=== PATIENT | male | born 1940 | race Caucasian/White ===

== ENCOUNTER 2022-07-24 09:04 | Inpatient (IN) ==
[2022-07-24] MEDS ORDERED: *HR* Dextrose 50 % in Water (Syg) 50 ML SYRINGE IVP PRN (20:44)
[2022-07-24] MEDS ORDERED: D5% in Water 1,000 ML IVC PRN (20:44)
[2022-07-24] MEDS ORDERED: Dextrose Gel 15 GM/37.5 ML TUBE PO PRN ×2 (20:44)
[2022-07-24] MEDS: Insulin LISPRO 300 UNITS/3 ML VIAL SUBQ SCH (22:44)
[2022-07-24] MEDS: QUEtiapine Fumarate 25 MG TABLET PO SCH (22:44)
[2022-07-24] MEDS: *HR* Metformin 500 MG TABLET PO SCH (22:44)
[2022-07-25 03:28] LABS: Bilirubin,Urine Negative (Negative); Blood,Urine Negative (Negative); Clarity,Urine Clear (Clear); Color,Urine Yellow (Yellow); Glucose,Urine (UA) 500 mg/dL (Normal); Ketones,Urine Negative (Negative); Leukocyte Esterase,Urine Negative (Negative); Nitrite,Urine Negative (Negative); PH,Urine 5.5 pH Units (5.0-8.0); Protein,Urine Negative (Neg-Trace); Urobilinogen,Urine Normal (Normal)
[2022-07-25 03:37] LABS: WBC,Urine 0-3 per hpf (0-3)
[2022-07-25 05:33] LABS: Hematocrit 35.9 % (37.5-50.1); Hemoglobin 11.8 g/dL (12.9-16.9); Mean Corpuscular HGB Conc 32.9 g/dL (31.6-35.5); Mean Corpuscular Hemoglobin 30.4 pg (28.0-33.3); Mean Corpuscular Volume 92.5 fL (83.0-100.0); Mean Platelet Volume 9.5 fL (9.4-12.4); Platelet Count 175 K/mcL (140-400); Red Blood Count 3.88 M/mcL (4.19-5.50); Red Cell Distribution Width 15.1 % (11.5-14.5); White Blood Count 4.7 K/mcL (4.3-11.1)
[2022-07-25 05:54] LABS: Albumin 3.5 g/dL (3.5-5.7); Albumin/Globulin Ratio 1.4 (1.1-2.2); Bilirubin,Total 0.5 mg/dL (0.3-1.0); Calcium 8.5 mg/dL (8.6-10.3); Globulin 2.5 g/dL (2.4-3.5); Magnesium 1.6 mg/dL (1.6-2.6); Potassium 3.6 mEq/L (3.5-5.1)
[2022-07-25] MEDS ORDERED: *HR* Enoxaparin 40 MG/0.4 ML SYRINGE SQ SCH (06:00)
[2022-07-25] MEDS: Insulin LISPRO 300 UNITS/3 ML VIAL SUBQ SCH ×4 (08:33→22:08)
[2022-07-25] MEDS: Aspirin Enteric Coated 81 MG Tablet PO SCH (08:35)
[2022-07-25 08:36] LABS: INR 1.2; Prothrombin Time 13.1 Seconds (9.4-12.1)
[2022-07-25 08:38] LABS: Activated Partial Thrombo Time 40.6 Seconds (26.0-36.0)
[2022-07-25] MEDS: Cholecalciferol (D-3) 1,000 UNIT (25MCG) TABLET PO SCH (10:23)
[2022-07-25] MEDS: *HR* Pioglitazone 15 MG TABLET PO SCH (10:23)
[2022-07-25] MEDS: *HR* GlyBURIDE 5 MG TABLET PO SCH (10:24)
[2022-07-25] MEDS: Finasteride 5 MG TABLET PO SCH (10:24)
[2022-07-25] MEDS: Metoprolol XL (24 HR) Succ 50 MG TAB.ER.24H PO SCH (10:24)
[2022-07-25] MEDS: *HR* SitaGLIPtin 25 MG TABLET PO SCH (10:24)
[2022-07-25] MEDS: Gabapentin 300 MG CAPSULE PO SCH (10:25)
[2022-07-25] MEDS: *HR* Metformin 500 MG TABLET PO SCH ×2 (10:25→22:07)
[2022-07-25] MEDS: (Mirabegron [Myrbetriq] 50 MG Tab.Er.24h) PO SCH (10:35)
[2022-07-25] MEDS: KRILL OIL 500 MG PO SCH (10:35)
[2022-07-25] MEDS: (Preservision Areds 2) PO SCH (10:35)
[2022-07-25] MEDS: (Cinnamon Bark [Cinnamon] 500 MG Capsule) PO SCH (11:14)
[2022-07-25] MEDS ORDERED: Saline Nasal Spray 44 ML BOTTLE NS PRN (19:02)
[2022-07-25] MEDS: QUEtiapine Fumarate 25 MG TABLET PO SCH (22:07)
[2022-07-26] MEDS: Insulin LISPRO 300 UNITS/3 ML VIAL SUBQ SCH ×4 (08:24→20:33)
[2022-07-26] MEDS: *HR* GlyBURIDE 5 MG TABLET PO SCH (08:25)
[2022-07-26] MEDS: *HR* Pioglitazone 15 MG TABLET PO SCH (08:25)
[2022-07-26] MEDS: Gabapentin 300 MG CAPSULE PO SCH (08:26)
[2022-07-26] MEDS: *HR* SitaGLIPtin 25 MG TABLET PO SCH (08:26)
[2022-07-26] MEDS: *HR* Metformin 500 MG TABLET PO SCH ×2 (08:26→21:04)
[2022-07-26] MEDS: Cholecalciferol (D-3) 1,000 UNIT (25MCG) TABLET PO SCH (08:26)
[2022-07-26] MEDS: Metoprolol XL (24 HR) Succ 50 MG TAB.ER.24H PO SCH (08:26)
[2022-07-26] MEDS: Aspirin Enteric Coated 81 MG Tablet PO SCH (08:26)
[2022-07-26] MEDS: Finasteride 5 MG TABLET PO SCH (08:26)
[2022-07-26] MEDS: KRILL OIL 500 MG PO SCH (08:27)
[2022-07-26] MEDS: (Mirabegron [Myrbetriq] 50 MG Tab.Er.24h) PO SCH (08:27)
[2022-07-26] MEDS: (Preservision Areds 2) PO SCH (08:27)
[2022-07-26] MEDS: (Cinnamon Bark [Cinnamon] 500 MG Capsule) PO SCH (15:19)
[2022-07-26] MEDS: polyethylene glycoL 3350 17 GM POWD.PACK PO SCH (15:55)
[2022-07-26] MEDS: QUEtiapine Fumarate 25 MG TABLET PO SCH (21:05)
[2022-07-26] MEDS: Gabapentin 100 MG CAPSULE PO SCH (21:06)
[2022-07-27 04:35] LABS: Hematocrit 33.1 % (37.5-50.1); Hemoglobin 11.1 g/dL (12.9-16.9); Mean Corpuscular HGB Conc 33.5 g/dL (31.6-35.5); Mean Corpuscular Hemoglobin 30.7 pg (28.0-33.3); Mean Corpuscular Volume 91.4 fL (83.0-100.0); Mean Platelet Volume 9.9 fL (9.4-12.4); Platelet Count 162 K/mcL (140-400); Red Blood Count 3.62 M/mcL (4.19-5.50); Red Cell Distribution Width 15.2 % (11.5-14.5); White Blood Count 6.2 K/mcL (4.3-11.1)
[2022-07-27 04:51] LABS: Albumin 3.3 g/dL (3.5-5.7); Albumin/Globulin Ratio 1.4 (1.1-2.2); Bilirubin,Total 0.4 mg/dL (0.3-1.0); Calcium 8.6 mg/dL (8.6-10.3); Globulin 2.3 g/dL (2.4-3.5); Magnesium 1.5 mg/dL (1.6-2.6); Potassium 3.7 mEq/L (3.5-5.1); Total Protein 5.6 g/dL (6.4-8.9)
[2022-07-27] MEDS: Insulin LISPRO 300 UNITS/3 ML VIAL SUBQ SCH ×4 (08:50→22:15)
[2022-07-27] MEDS: Aspirin Enteric Coated 81 MG Tablet PO SCH (08:51)
[2022-07-27] MEDS: Sennosides/Docusate Sodium TABLET PO PRN ×2 (08:51→22:11)
[2022-07-27] MEDS: Metoprolol XL (24 HR) Succ 50 MG TAB.ER.24H PO SCH (08:52)
[2022-07-27] MEDS: *HR* SitaGLIPtin 25 MG TABLET PO SCH (08:52)
[2022-07-27] MEDS: *HR* Metformin 500 MG TABLET PO SCH ×2 (08:52→22:12)
[2022-07-27] MEDS: *HR* Pioglitazone 15 MG TABLET PO SCH (08:52)
[2022-07-27] MEDS: Cholecalciferol (D-3) 1,000 UNIT (25MCG) TABLET PO SCH (08:53)
[2022-07-27] MEDS: Gabapentin 100 MG CAPSULE PO SCH ×3 (08:53→22:12)
[2022-07-27] MEDS: *HR* GlyBURIDE 5 MG TABLET PO SCH (08:53)
[2022-07-27] MEDS: Finasteride 5 MG TABLET PO SCH (08:53)
[2022-07-27] MEDS: polyethylene glycoL 3350 17 GM POWD.PACK PO SCH (08:54)
[2022-07-27] MEDS: KRILL OIL 500 MG PO SCH (09:12)
[2022-07-27] MEDS: (Preservision Areds 2) PO SCH (09:12)
[2022-07-27] MEDS: (Mirabegron [Myrbetriq] 50 MG Tab.Er.24h) PO SCH (09:12)
[2022-07-27] MEDS: Magnesium Oxide 400 MG TABLET PO SCH ×2 (12:17→22:12)
[2022-07-27] MEDS: (Cinnamon Bark [Cinnamon] 500 MG Capsule) PO SCH (15:25)
[2022-07-27] MEDS: QUEtiapine Fumarate 25 MG TABLET PO SCH (22:13)
[2022-07-28 05:20] LABS: Calcium 8.6 mg/dL (8.6-10.3); Magnesium 1.6 mg/dL (1.6-2.6); Potassium 4.2 mEq/L (3.5-5.1)
[2022-07-28] MEDS: Insulin LISPRO 300 UNITS/3 ML VIAL SUBQ SCH ×4 (08:23→22:42)
[2022-07-28] MEDS: Cholecalciferol (D-3) 1,000 UNIT (25MCG) TABLET PO SCH (08:24)
[2022-07-28] MEDS: *HR* GlyBURIDE 5 MG TABLET PO SCH (08:24)
[2022-07-28] MEDS: *HR* SitaGLIPtin 25 MG TABLET PO SCH (08:24)
[2022-07-28] MEDS: Metoprolol XL (24 HR) Succ 50 MG TAB.ER.24H PO SCH (08:24)
[2022-07-28] MEDS: Gabapentin 100 MG CAPSULE PO SCH ×3 (08:24→19:58)
[2022-07-28] MEDS: *HR* Pioglitazone 15 MG TABLET PO SCH (08:24)
[2022-07-28] MEDS: Finasteride 5 MG TABLET PO SCH (08:24)
[2022-07-28] MEDS: *HR* Metformin 500 MG TABLET PO SCH ×2 (08:24→19:58)
[2022-07-28] MEDS: Magnesium Oxide 400 MG TABLET PO SCH ×2 (08:25→19:58)
[2022-07-28] MEDS: KRILL OIL 500 MG PO SCH (08:25)
[2022-07-28] MEDS: polyethylene glycoL 3350 17 GM POWD.PACK PO SCH (08:25)
[2022-07-28] MEDS: (Mirabegron [Myrbetriq] 50 MG Tab.Er.24h) PO SCH (08:25)
[2022-07-28] MEDS: Aspirin Enteric Coated 81 MG Tablet PO SCH (08:25)
[2022-07-28] MEDS: Sennosides/Docusate Sodium TABLET PO PRN (08:25)
[2022-07-28] MEDS: (Preservision Areds 2) PO SCH (08:25)
[2022-07-28] MEDS: (Cinnamon Bark [Cinnamon] 500 MG Capsule) PO SCH (15:39)
[2022-07-28] MEDS: QUEtiapine Fumarate 25 MG TABLET PO SCH (19:59)
[2022-07-29] MEDS: *HR* Pioglitazone 15 MG TABLET PO SCH (07:23)
[2022-07-29] MEDS: *HR* GlyBURIDE 5 MG TABLET PO SCH (07:24)
[2022-07-29] MEDS: Cholecalciferol (D-3) 1,000 UNIT (25MCG) TABLET PO SCH (07:24)
[2022-07-29] MEDS: Gabapentin 100 MG CAPSULE PO SCH ×3 (07:24→19:50)
[2022-07-29] MEDS: Metoprolol XL (24 HR) Succ 50 MG TAB.ER.24H PO SCH (07:24)
[2022-07-29] MEDS: Insulin LISPRO 300 UNITS/3 ML VIAL SUBQ SCH ×4 (07:24→19:42)
[2022-07-29] MEDS: Aspirin Enteric Coated 81 MG Tablet PO SCH (07:24)
[2022-07-29] MEDS: Finasteride 5 MG TABLET PO SCH (07:24)
[2022-07-29] MEDS: *HR* Metformin 500 MG TABLET PO SCH ×2 (07:25→19:50)
[2022-07-29] MEDS: Magnesium Oxide 400 MG TABLET PO SCH ×2 (07:25→19:51)
[2022-07-29] MEDS: (Mirabegron [Myrbetriq] 50 MG Tab.Er.24h) PO SCH (07:25)
[2022-07-29] MEDS: (Preservision Areds 2) PO SCH (07:25)
[2022-07-29] MEDS: KRILL OIL 500 MG PO SCH (07:25)
[2022-07-29] MEDS: *HR* SitaGLIPtin 25 MG TABLET PO SCH (07:25)
[2022-07-29] MEDS: polyethylene glycoL 3350 17 GM POWD.PACK PO SCH (07:25)
[2022-07-29] MEDS: (Cinnamon Bark [Cinnamon] 500 MG Capsule) PO SCH (14:38)
[2022-07-29] MEDS: QUEtiapine Fumarate 25 MG TABLET PO SCH (19:50)
[2022-07-30 05:09] LABS: Hematocrit 34.7 % (37.5-50.1); Hemoglobin 11.5 g/dL (12.9-16.9); Mean Corpuscular HGB Conc 33.1 g/dL (31.6-35.5); Mean Corpuscular Hemoglobin 30.7 pg (28.0-33.3); Mean Corpuscular Volume 92.8 fL (83.0-100.0); Mean Platelet Volume 9.5 fL (9.4-12.4); Platelet Count 196 K/mcL (140-400); Red Blood Count 3.74 M/mcL (4.19-5.50); White Blood Count 5.6 K/mcL (4.3-11.1)
[2022-07-30 05:22] LABS: Calcium 8.7 mg/dL (8.6-10.3); Magnesium 1.8 mg/dL (1.6-2.6); Potassium 3.9 mEq/L (3.5-5.1)
[2022-07-30] MEDS: Insulin LISPRO 300 UNITS/3 ML VIAL SUBQ SCH ×4 (07:23→19:51)
[2022-07-30] MEDS: *HR* Metformin 500 MG TABLET PO SCH ×2 (08:14→19:51)
[2022-07-30] MEDS: *HR* Pioglitazone 15 MG TABLET PO SCH (08:14)
[2022-07-30] MEDS: *HR* SitaGLIPtin 25 MG TABLET PO SCH (08:14)
[2022-07-30] MEDS: *HR* GlyBURIDE 5 MG TABLET PO SCH (08:14)
[2022-07-30] MEDS: Finasteride 5 MG TABLET PO SCH (08:14)
[2022-07-30] MEDS: Cholecalciferol (D-3) 1,000 UNIT (25MCG) TABLET PO SCH (08:15)
[2022-07-30] MEDS: polyethylene glycoL 3350 17 GM POWD.PACK PO SCH (08:15)
[2022-07-30] MEDS: Aspirin Enteric Coated 81 MG Tablet PO SCH (08:15)
[2022-07-30] MEDS: Magnesium Oxide 400 MG TABLET PO SCH ×2 (08:15→19:50)
[2022-07-30] MEDS: (Mirabegron [Myrbetriq] 50 MG Tab.Er.24h) PO SCH (08:15)
[2022-07-30] MEDS: KRILL OIL 500 MG PO SCH (08:15)
[2022-07-30] MEDS: (Preservision Areds 2) PO SCH (08:15)
[2022-07-30] MEDS: Metoprolol XL (24 HR) Succ 50 MG TAB.ER.24H PO SCH (08:15)
[2022-07-30] MEDS: Gabapentin 100 MG CAPSULE PO SCH ×3 (08:15→19:51)
[2022-07-30] MEDS: (Cinnamon Bark [Cinnamon] 500 MG Capsule) PO SCH (11:55)
[2022-07-30] MEDS: QUEtiapine Fumarate 25 MG TABLET PO SCH (19:50)
[2022-07-30] MEDS: Sennosides/Docusate Sodium TABLET PO PRN (19:57)
[2022-07-31] MEDS: Insulin LISPRO 300 UNITS/3 ML VIAL SUBQ SCH ×4 (07:38→20:00)
[2022-07-31] MEDS: Cholecalciferol (D-3) 1,000 UNIT (25MCG) TABLET PO SCH (08:41)
[2022-07-31] MEDS: Metoprolol XL (24 HR) Succ 50 MG TAB.ER.24H PO SCH (08:41)
[2022-07-31] MEDS: *HR* Pioglitazone 15 MG TABLET PO SCH (08:41)
[2022-07-31] MEDS: *HR* GlyBURIDE 5 MG TABLET PO SCH (08:41)
[2022-07-31] MEDS: Finasteride 5 MG TABLET PO SCH (08:41)
[2022-07-31] MEDS: (Preservision Areds 2) PO SCH (08:42)
[2022-07-31] MEDS: Magnesium Oxide 400 MG TABLET PO SCH ×2 (08:42→20:16)
[2022-07-31] MEDS: polyethylene glycoL 3350 17 GM POWD.PACK PO SCH (08:42)
[2022-07-31] MEDS: (Mirabegron [Myrbetriq] 50 MG Tab.Er.24h) PO SCH (08:42)
[2022-07-31] MEDS: Gabapentin 100 MG CAPSULE PO SCH ×3 (08:42→20:16)
[2022-07-31] MEDS: *HR* SitaGLIPtin 25 MG TABLET PO SCH (08:42)
[2022-07-31] MEDS: KRILL OIL 500 MG PO SCH (08:42)
[2022-07-31] MEDS: *HR* Metformin 500 MG TABLET PO SCH ×2 (08:42→20:16)
[2022-07-31] MEDS: Aspirin Enteric Coated 81 MG Tablet PO SCH (08:42)
[2022-07-31] MEDS: (Cinnamon Bark [Cinnamon] 500 MG Capsule) PO SCH (08:42)
[2022-07-31] MEDS: QUEtiapine Fumarate 25 MG TABLET PO SCH (20:16)
[2022-08-01] MEDS: Insulin LISPRO 300 UNITS/3 ML VIAL SUBQ SCH ×4 (07:44→22:01)
[2022-08-01] MEDS: Metoprolol XL (24 HR) Succ 50 MG TAB.ER.24H PO SCH (08:07)
[2022-08-01] MEDS: *HR* Pioglitazone 15 MG TABLET PO SCH (08:07)
[2022-08-01] MEDS: Finasteride 5 MG TABLET PO SCH (08:07)
[2022-08-01] MEDS: *HR* GlyBURIDE 5 MG TABLET PO SCH (08:07)
[2022-08-01] MEDS: Cholecalciferol (D-3) 1,000 UNIT (25MCG) TABLET PO SCH (08:07)
[2022-08-01] MEDS: Gabapentin 100 MG CAPSULE PO SCH ×3 (08:07→21:57)
[2022-08-01] MEDS: *HR* SitaGLIPtin 25 MG TABLET PO SCH (08:07)
[2022-08-01] MEDS: Aspirin Enteric Coated 81 MG Tablet PO SCH (08:08)
[2022-08-01] MEDS: *HR* Metformin 500 MG TABLET PO SCH ×2 (08:08→21:57)
[2022-08-01] MEDS: Magnesium Oxide 400 MG TABLET PO SCH ×2 (08:08→21:57)
[2022-08-01] MEDS: Multivit/Ca/Min/Fe/FA 1 TAB TABLET PO SCH (08:09)
[2022-08-01] MEDS: polyethylene glycoL 3350 17 GM POWD.PACK PO SCH (08:09)
[2022-08-01] MEDS: KRILL OIL 500 MG PO SCH (08:09)
[2022-08-01] MEDS: (Mirabegron [Myrbetriq] 50 MG Tab.Er.24h) PO SCH (08:09)
[2022-08-01] MEDS: (Cinnamon Bark [Cinnamon] 500 MG Capsule) PO SCH (12:00)
[2022-08-01] MEDS: QUEtiapine Fumarate 25 MG TABLET PO SCH (22:01)
[2022-08-02 04:20] LABS: Hematocrit 33.6 % (37.5-50.1); Hemoglobin 11.3 g/dL (12.9-16.9); Mean Corpuscular HGB Conc 33.6 g/dL (31.6-35.5); Mean Corpuscular Hemoglobin 30.7 pg (28.0-33.3); Mean Corpuscular Volume 91.3 fL (83.0-100.0); Mean Platelet Volume 9.5 fL (9.4-12.4); Platelet Count 191 K/mcL (140-400); Red Blood Count 3.68 M/mcL (4.19-5.50); Red Cell Distribution Width 15.1 % (11.5-14.5); White Blood Count 5.3 K/mcL (4.3-11.1)
[2022-08-02 04:37] LABS: Albumin 3.4 g/dL (3.5-5.7); Albumin/Globulin Ratio 1.5 (1.1-2.2); Bilirubin,Total 0.3 mg/dL (0.3-1.0); Calcium 8.5 mg/dL (8.6-10.3); Globulin 2.2 g/dL (2.4-3.5); Magnesium 1.8 mg/dL (1.6-2.6); Potassium 4.2 mEq/L (3.5-5.1); Total Protein 5.6 g/dL (6.4-8.9)
[2022-08-02] MEDS: Insulin LISPRO 300 UNITS/3 ML VIAL SUBQ SCH (08:02)
[2022-08-02] MEDS: Aspirin Enteric Coated 81 MG Tablet PO SCH (08:04)
[2022-08-02] MEDS: Multivit/Ca/Min/Fe/FA 1 TAB TABLET PO SCH (08:04)
[2022-08-02] MEDS: Gabapentin 100 MG CAPSULE PO SCH ×3 (08:04→19:57)
[2022-08-02] MEDS: Magnesium Oxide 400 MG TABLET PO SCH ×2 (08:04→19:57)
[2022-08-02] MEDS: *HR* Pioglitazone 15 MG TABLET PO SCH (08:04)
[2022-08-02] MEDS: *HR* Metformin 500 MG TABLET PO SCH ×2 (08:04→19:58)
[2022-08-02] MEDS: *HR* SitaGLIPtin 25 MG TABLET PO SCH (08:04)
[2022-08-02] MEDS: *HR* GlyBURIDE 5 MG TABLET PO SCH (08:05)
[2022-08-02] MEDS: polyethylene glycoL 3350 17 GM POWD.PACK PO SCH (08:05)
[2022-08-02] MEDS: KRILL OIL 500 MG PO SCH (08:05)
[2022-08-02] MEDS: Cholecalciferol (D-3) 1,000 UNIT (25MCG) TABLET PO SCH (08:05)
[2022-08-02] MEDS: Metoprolol XL (24 HR) Succ 50 MG TAB.ER.24H PO SCH (08:05)
[2022-08-02] MEDS: Finasteride 5 MG TABLET PO SCH (08:05)
[2022-08-02] MEDS: (Mirabegron [Myrbetriq] 50 MG Tab.Er.24h) PO SCH (08:05)
[2022-08-02] MEDS: (Cinnamon Bark [Cinnamon] 500 MG Capsule) PO SCH (08:06)
[2022-08-02] MEDS: QUEtiapine Fumarate 25 MG TABLET PO SCH (19:58)
[2022-08-03 07:02] VITALS: RESP 16
[2022-08-03] MEDS: Aspirin Enteric Coated 81 MG Tablet PO SCH (10:18)
[2022-08-03] MEDS: Multivit/Ca/Min/Fe/FA 1 TAB TABLET PO SCH (10:18)
[2022-08-03] MEDS: Magnesium Oxide 400 MG TABLET PO SCH ×2 (10:18→19:38)
[2022-08-03] MEDS: *HR* Pioglitazone 15 MG TABLET PO SCH (10:18)
[2022-08-03] MEDS: *HR* Metformin 500 MG TABLET PO SCH ×2 (10:19→19:39)
[2022-08-03] MEDS: *HR* GlyBURIDE 5 MG TABLET PO SCH (10:19)
[2022-08-03] MEDS: Metoprolol XL (24 HR) Succ 50 MG TAB.ER.24H PO SCH (10:19)
[2022-08-03] MEDS: Cholecalciferol (D-3) 1,000 UNIT (25MCG) TABLET PO SCH (10:19)
[2022-08-03] MEDS: Finasteride 5 MG TABLET PO SCH (10:19)
[2022-08-03] MEDS: *HR* SitaGLIPtin 25 MG TABLET PO SCH (10:19)
[2022-08-03] MEDS: Gabapentin 100 MG CAPSULE PO SCH ×3 (10:19→19:39)
[2022-08-03] MEDS: polyethylene glycoL 3350 17 GM POWD.PACK PO SCH (10:19)
[2022-08-03] MEDS: QUEtiapine Fumarate 25 MG TABLET PO SCH (19:38)
[2022-08-04] MEDS: *HR* Pioglitazone 15 MG TABLET PO SCH (08:01)
[2022-08-04] MEDS: polyethylene glycoL 3350 17 GM POWD.PACK PO SCH (08:01)
[2022-08-04] MEDS: Finasteride 5 MG TABLET PO SCH (08:02)
[2022-08-04] MEDS: Gabapentin 100 MG CAPSULE PO SCH ×3 (08:02→19:12)
[2022-08-04] MEDS: *HR* SitaGLIPtin 25 MG TABLET PO SCH (08:02)
[2022-08-04] MEDS: Magnesium Oxide 400 MG TABLET PO SCH ×2 (08:02→19:11)
[2022-08-04] MEDS: *HR* Metformin 500 MG TABLET PO SCH ×2 (08:02→19:10)
[2022-08-04] MEDS: Aspirin Enteric Coated 81 MG Tablet PO SCH (08:02)
[2022-08-04] MEDS: Multivit/Ca/Min/Fe/FA 1 TAB TABLET PO SCH (08:02)
[2022-08-04] MEDS: Cholecalciferol (D-3) 1,000 UNIT (25MCG) TABLET PO SCH (08:02)
[2022-08-04] MEDS: *HR* GlyBURIDE 5 MG TABLET PO SCH (08:02)
[2022-08-04] MEDS: Metoprolol XL (24 HR) Succ 50 MG TAB.ER.24H PO SCH (08:03)
[2022-08-04] MEDS: QUEtiapine Fumarate 25 MG TABLET PO SCH (19:10)
[2022-08-04 19:14] VITALS: BP 106/67; PULSE 80; TEMP 97.8; O2SAT 94
== END 2022-08-04 23:59 | disposition other institution (70) | DRG 66 ==
LOC: INPGRE 20:12
PROVIDERS: ADMIT Family Medicine; ATTEND Family Medicine